=== PATIENT | female | born 1980 | race Asian ===

== ENCOUNTER 2021-12-09 04:38 | Day surgery (SDC) | payer OTHER ==
[2021-10-17 11:48] VITALS: BMI 31.6
[2021-12-09] MEDS ORDERED: BUPIVACAINE HCL/PF 0.5% (5MG/ML) 10 ML VIAL ONE (11:07)
[2021-12-09] MEDS ORDERED: IBUPROFEN 600 MG TABLET (FP) PO PRN (12:30)
[2021-12-09] MEDS ORDERED: ACETAMINOPHEN 325 MG TABLET (FP) PO PRN (12:30)
[2021-12-09] MEDS ORDERED: DEXMEDETOMIDINE HCL 200 MCG/2 ML IVPB ONE ×2 (13:01→15:09)
[2021-12-09] MEDS ORDERED: ACETAMINOPHEN INJECTION 100 ML IVPB ONE ×2 (13:01→15:10)
[2021-12-09] MEDS ORDERED: MIDAZOLAM HCL 2 MG/2 ML SINGLE DOSE VIAL ONE (13:05)
[2021-12-09] MEDS ORDERED: SUCCINYLCHOLINE CHLORIDE 200 MG/10 ML SYRINGE ONE (13:22)
[2021-12-09] MEDS ORDERED: ROCURONIUM BROMIDE 50 MG/5 ML SYRINGE ONE (13:23)
[2021-12-09] MEDS ORDERED: PROPOFOL 20 ML ONE ×2 (13:23)
[2021-12-09] MEDS ORDERED: FENTANYL CITRATE/PF 50 MCG/ML VIAL ONE ×7 (13:24→15:17)
[2021-12-09] MEDS ORDERED: CLINDAMYCIN 900 MG PREMIX BAG IVPB ONE (13:30)
[2021-12-09] MEDS ORDERED: BUPIVACAINE HCL/PF 0.5% (5MG/ML) 10 ML VIAL IJ ONE (13:45)
[2021-12-09] MEDS ORDERED: NEOSTIGMINE METHYLSULFATE 0.5 MG/ML - 10 ML MDV ONE (13:56)
[2021-12-09] MEDS ORDERED: ACETAMINOPHEN 1000 MG/100 ML BAG IVPB ONE (15:28)
[2021-12-09 16:39] VITALS: TEMP 97.2
[2021-12-09] MEDS ORDERED: oxyCODONE HCL 5 MG TABLET ONE ×3 (16:41→18:39)
[2021-12-09] MEDS: oxyCODONE HCL 5 MG TABLET PO PRN ×3 (16:42→17:51)
[2021-12-09] MEDS ORDERED: oxyCODONE HCL 5 MG TABLET PO ONE ×2 (17:41→17:50)
[2021-12-09] MEDS ORDERED: IBUPROFEN 600 MG TABLET (FP) PO ONE ×2 (18:40→18:41)
[2021-12-09 19:57] VITALS: BP 120/75; PULSE 80
== END 2021-12-09 19:51 | disposition home or self-care (01) ==
LOC: JASU-SURG 04:38
PROVIDERS: ATTEND Obstetrics & Gynecology
PROC: 0UT04ZZ Resection of Right Ovary, Percutaneous Endoscopic Approach (ICD-10-PCS; principal; 2021-12-09 11:00)
PROC: 0UT54ZZ Resection of Right Fallopian Tube, Percutaneous Endoscopic Approach (ICD-10-PCS; 2021-12-09 11:00)
DX: D27.0 Benign neoplasm of right ovary (principal); D25.2 Subserosal leiomyoma of uterus
CPT/HCPCS: 81025; 88307-TC; 94760